=== PATIENT | female | born 1990 | race Two or more races ===

== ENCOUNTER 2023-07-31 21:57 | Emergency (ER) | payer OTHER ==
[~2023-07-31] VITALS: Ht 157.5 cm; Wt 91.6 kg
[2023-07-31] MEDS ORDERED: PRENATABS RX T1 EACH (22:15)
[2023-07-31 23:02] LABS: HEMATOCRIT 36.3 % (36.0-45.00); HEMOGLOBIN 12.2 g/dL (12.0-15.00); MEAN CELL VOLUME 87.3 fL (80.00-100.00); MEAN CORPUSCULAR HEMOGLOBIN 29.4 pg (27.00-32.0); MEAN CORPUSCULAR HGB CONC 33.7 g/dl (32.0-36.0); PLATELET COUNT 332 K/uL (150-450); RED BLOOD COUNT 4.16 M/uL (4.00-6.00); RED CELL DISTRIBUTION WIDTH 15.4 % (11.5-14.5)
[2023-07-31 23:20] LABS: INR 0.94; PARTIAL THROMBOPLASTIN TIME 28.8 SECONDS (22.0-34.0); PROTHROMBIN TIME 9.9 SECONDS (9.0-11.5)
[2023-07-31 23:37] LABS: PH,URINE 5.5 (5.0-8.0); URINE APPEARANCE Cloudy; URINE BILIRRUBIN Negative (NEGATIVE); URINE BLOOD Large; URINE COLOR Yellow; URINE GLUCOSE Negative (NEGATIVE); URINE LEUKOCYTE Trace; URINE NITRATE Negative; URINE PROTEIN Negative (NEGATIVE); URINE UROBILINOGEN 0.2 E.U./dl
[2023-07-31 23:38] LABS: CALCIUM 9.1 mg/dL (8.5-10.1); CREATININE SERUM 0.63 mg/dL (0.55-1.02); GFR 108.83; POTASSIUM 3.89 mEq/L (3.5-5.1)
[2023-07-31 23:41] LABS: URINE BACTERIA 529.1 uL (0.0-1933); URINE EPITHELIAL CELLS 21.9 uL (0.0-38.8)
== END 2023-08-01 00:25 | disposition home or self-care (01) ==
LOC: ER 21:58
PROVIDERS: General Practice
DX: O20.8 Other hemorrhage in early pregnancy (principal); Z3A.09 9 weeks gestation of pregnancy

== ENCOUNTER 2023-10-28 15:07 | Emergency (ER) | payer OTHER ==
[~2023-10-28] VITALS: Ht 160 cm; Wt 97.1 kg
[~2023-10-28 15:07] MED LIST: PRENATABS RX T1 EACH
[2023-10-28] MEDS ORDERED: 0.9 % SODIUM CHLORIDE 500 ML IV ONE (19:00)
[2023-10-28 19:15] LABS: HEMATOCRIT 36.8 % (36.0-45.00); HEMOGLOBIN 12.6 g/dL (12.0-15.00); MEAN CELL VOLUME 92.1 fL (80.00-100.00); MEAN CORPUSCULAR HEMOGLOBIN 31.6 pg (27.00-32.0); MEAN CORPUSCULAR HGB CONC 34.3 g/dl (32.0-36.0); PLATELET COUNT 281 K/uL (150-450); RED BLOOD COUNT 3.99 M/uL (4.00-6.00); RED CELL DISTRIBUTION WIDTH 14.9 % (11.5-14.5)
[2023-10-28 19:38] LABS: CALCIUM 9.3 mg/dL (8.5-10.1); CREATININE SERUM 0.58 mg/dL (0.55-1.02); POTASSIUM 4.43 mEq/L (3.5-5.1)
[2023-10-28 21:09] LABS: PH,URINE 6.5 (5.0-8.0); URINE APPEARANCE Cloudy; URINE BILIRRUBIN Negative (NEGATIVE); URINE BLOOD Negative; URINE COLOR Yellow; URINE GLUCOSE Negative (NEGATIVE); URINE LEUKOCYTE Large; URINE NITRATE Negative; URINE PROTEIN Negative (NEGATIVE); URINE UROBILINOGEN 0.2 E.U./dl
[2023-10-28 21:13] LABS: URINE EPITHELIAL CELLS 101.1 uL (0.0-38.8); URINE RBC 2.2 uL (0.0-20.8); URINE WBC 225.8 uL (0.0-23.2)
[2023-10-28] MEDS ORDERED: MACROBID 100 M100 MG PO (23:24)
== END 2023-10-29 00:05 ==
LOC: ER 15:08
PROVIDERS: Nurse Practitioner Family
DX: R53.81 Other malaise (principal); R42 Dizziness and giddiness; N39.0 Urinary tract infection, site not specified

== ENCOUNTER 2024-02-08 10:42 | Inpatient (IN) | payer OTHER ==
[~2024-02-08] VITALS: Ht 160 cm; Wt 103.4 kg
[~2024-02-08 10:42] MED LIST changes: +MACROBID 100 M100 MG PO
[2024-02-08] MEDS ORDERED: AMPICILLIN TRI500 MG PO (10:48)
[2024-02-08 10:55] LABS: HEMATOCRIT 38.4 % (36.0-45.00); HEMOGLOBIN 13.1 g/dL (12.0-15.00); MEAN CELL VOLUME 92.6 fL (80.00-100.00); MEAN CORPUSCULAR HEMOGLOBIN 31.7 pg (27.00-32.0); MEAN CORPUSCULAR HGB CONC 34.2 g/dl (32.0-36.0); PLATELET COUNT 249 K/uL (150-450); RED BLOOD COUNT 4.15 M/uL (4.00-6.00); RED CELL DISTRIBUTION WIDTH 14.3 % (11.5-14.5)
[2024-02-08 10:56] LABS: URINE APPEARANCE Cloudy; URINE BILIRRUBIN Negative (NEGATIVE); URINE BLOOD Negative; URINE COLOR Yellow; URINE GLUCOSE Negative (NEGATIVE); URINE KETONE Trace (NEGATIVE); URINE LEUKOCYTE Large; URINE NITRATE Negative; URINE PROTEIN Trace (NEGATIVE)
[2024-02-08 10:59] LABS: URINE EPITHELIAL CELLS 121.6 uL (0.0-38.8); URINE RBC 8.3 uL (0.0-20.8); URINE WBC 90.7 uL (0.0-23.2)
[2024-02-08 11:22] LABS: ALBUMIN 2.7 gm/dL (3.4-5.0); BILIRUBIN TOTAL 0.16 mg/dL (0.3-1.2); CALCIUM 9.5 mg/dL (8.5-10.1); CREATININE SERUM 0.62 mg/dL (0.55-1.02); GFR 110.19; GLOBULINA 3.4 G/DL (2.4-3.5); POTASSIUM 4.4 mEq/L (3.5-5.1); TOTAL PROTEIN 6.1 gm/dL (6.4-8.2)
[2024-02-08 11:25] LABS: INR < 0.93; PARTIAL THROMBOPLASTIN TIME 26.5 SECONDS (22.0-34.0); PROTHROMBIN TIME 10.2 SECONDS (9.0-11.5)
[2024-02-08 11:31] LABS: URINE CRYSTALS FEW /HPF
[2024-02-16 06:32] VITALS: BP 111/78
[2024-02-16] MEDS ORDERED: PROMETHAZINE HCL 50 MG/ML AMPUL IM PRN (10:15)
[2024-02-16] MEDS ORDERED: MEPERIDINE HCL/PF 50 MG/ML VIAL IM PRN (10:15)
[2024-02-16] MEDS ORDERED: MORPHINE SULFATE 4 MG/ML VIAL IV ONE ×2 (11:20→11:50)
[2024-02-16] MEDS ORDERED: MEPERIDINE HCL 25 MG/ML AMPUL IV ONE (13:40)
[2024-02-16] MEDS ORDERED: CEFAZOLIN SODIUM 1,000 MG VIAL IV SCH (14:00)
[2024-02-16] MEDS ORDERED: ERYTHROMYCIN BASE OPHT 1GM EACH TUBE OP ONE (15:30)
[2024-02-16] MEDS ORDERED: CEFAZOLIN SODIUM 1,000 MG VIAL IV ONE (15:30)
[2024-02-16] MEDS ORDERED: FAMOTIDINE/PF 20 MG/2 ML VIAL IV ONE (15:30)
[2024-02-16] MEDS ORDERED: MEPERIDINE HCL 50 MG/ML AMPUL IM ONE (15:30)
[2024-02-16] MEDS ORDERED: OXYTOCIN 20 UNITS/1000ML RL PIGGYBAG IV ONE (15:30)
[2024-02-16 17:30] VITALS: BP 134/83
[2024-02-17 01:40] LABS: HEMATOCRIT 34.7 % (36.0-45.00); HEMOGLOBIN 11.9 g/dL (12.0-15.00); MEAN CELL VOLUME 93.2 fL (80.00-100.00); MEAN CORPUSCULAR HGB CONC 34.3 g/dl (32.0-36.0); PLATELET COUNT 166 K/uL (150-450); RED BLOOD COUNT 3.72 M/uL (4.00-6.00); RED CELL DISTRIBUTION WIDTH 14.4 % (11.5-14.5)
[2024-02-17 02:12] VITALS: BP 117/79
[2024-02-17 08:00] VITALS: BP 109/69
[2024-02-17] MEDS ORDERED: OxyCODONE HCL/APAP UD (PERCOCET) PO PRN (11:00)
[2024-02-17 15:57] VITALS: BP 128/76
[2024-02-18 01:03] VITALS: BP 110/70
[2024-02-18 08:00] VITALS: BP 119/80
[2024-02-18 15:08] VITALS: BP 127/86
[2024-02-18 23:59] VITALS: BP 120/76
[2024-02-19] MEDS ORDERED: IBUPROFEN800 MG PO (07:35)
[2024-02-19 08:00] VITALS: BP 105/70
== END 2024-02-19 10:26 | disposition home or self-care (01) | DRG 788 ==
LOC: OB/GYN 02-16 06:09 → O/R 02-16 06:09 → OB/GYN 02-16 09:00
PROVIDERS: ADMIT Specialist; ATTEND Specialist
PROC: 0UB10ZZ Excision of Left Ovary, Open Approach (ICD-10-PCS; 2024-02-16)
PROC: 4A1HXCZ Monitoring of Products of Conception, Cardiac Rate, External Approach (ICD-10-PCS; 2024-02-16)
PROC: 10D00Z1 Extraction of Products of Conception, Low, Open Approach (ICD-10-PCS; principal; 2024-02-16 09:00)
DX: O33.8 Maternal care for disproportion of other origin (principal); O82 Encounter for cesarean delivery without indication; O34.83 Maternal care for other abnormalities of pelvic organs, third trimester; D27.1 Benign neoplasm of left ovary; Z3A.38 38 weeks gestation of pregnancy; Z37.0 Single live birth; Z20.822 Contact with and (suspected) exposure to COVID-19